=== PATIENT | female | born 1980 | race Caucasian/White ===

== ENCOUNTER → 2016-08-29 | Outpatient (CLI) | payer BC, OTHER ==
[~2016-08-29] MED LIST: HYDR-3816 PO; IBUP-1773 PO
--- NOTE | 2016-08-29 14:55 | Diagnostic Imaging Report ---
Transabdominal and transvaginal pelvic ultrasound. INDICATION: Excessive bleeding and cramping. FINDINGS: The uterus is 8 x 5 x 5.2 cm. The endometrial stripe is 1.6 cm in thickness. Trace amount of fluid is seen in the endometrial cavity. The myometrium is slightly heterogeneous with no discrete mass. The right ovary is 2.6 x 2.2 x 2.5 cm. The left ovary is 1.8 x 2.7 x 1.7 cm. The ovaries demonstrate arterial and venous waveforms. No significant free fluid or fluid collection in the pelvis is noted. IMPRESSION: No definite abnormality. Dictated by: Dictated on workstation # [id number]
== END ==
LOC: RAD 13:16
PROVIDERS: ATTEND Obstetrics & Gynecology
DX: N92.0 Excessive and frequent menstruation with regular cycle (principal)
CPT/HCPCS: 76830; 76856

== ENCOUNTER 2016-08-31 11:38 | Outpatient (CLI) | payer BC ==
[~2016-08-31] VITALS: Ht 170.2 cm; Wt 89.8 kg
== END 2016-08-31 11:51 ==
LOC: PREOP 11:38
PROVIDERS: ATTEND Obstetrics & Gynecology
DX: Z01.818 Encounter for other preprocedural examination (principal); N92.0 Excessive and frequent menstruation with regular cycle

== ENCOUNTER 2016-09-04 10:31 | Day surgery (SDC) | payer BC ==
[~2016-09-04] VITALS: Ht 170.2 cm; Wt 89.8 kg
[2016-09-04] MEDS ORDERED: cefTRIAXone 1 GM (ROCEPHIN) VIAL ONE (10:36)
[2016-09-04] MEDS ORDERED: NS (IVPB) 50 ML ONE (10:36)
[2016-09-04] MEDS ORDERED: ceFAZolin 1,000 MG (ANCEF) VIAL ONE (10:37)
[2016-09-04] MEDS ORDERED: metroNIDAZOLE 500MG/100ML IVPB 100 ML ONE (10:37)
[2016-09-04] MEDS ORDERED: metroNIDAZOLE 500 MG/100 ML IVPB (PRE-MIX) IV ONE (10:45)
[2016-09-04] MEDS ORDERED: ceFAZolin 1 GM/NS 50 ML IVPB IV ONE ×2 (10:45)
[2016-09-04] MEDS: LACTATED RINGERS 1,000 ML IV PRN ×3 (10:45→14:30)
[2016-09-04] MEDS ORDERED: CATHETER FLUSH 10 ML SYR IV PRN (10:45)
[2016-09-04] MEDS ORDERED: ONDANSETRON 4 MG/2 ML (SDV) Z0FRAN ONE (10:49)
[2016-09-04] MEDS ORDERED: MIDAZOLAM 2 MG/2 ML (VERSED) VIAL ONE (10:49)
[2016-09-04] MEDS ORDERED: DEXAMETHASONE PF 10 MG/ML (DECADRON) VIAL ONE (10:49)
[2016-09-04] MEDS ORDERED: SEVOFLURANE (ULTANE) 15 ML INHAL SOLN ONE ×8 (10:49→14:42)
[2016-09-04] MEDS ORDERED: proPOfol 200 MG/20 ML (DIPRIVAN) VIAL IV ONE (10:49)
[2016-09-04] MEDS ORDERED: fentaNYL INJECTION 250 MCG/5 ML AMP ONE (10:49)
[2016-09-04] MEDS ORDERED: ROCURONIUM 50 MG/5 ML (ZEMURON) VIAL IV ONE (10:49)
[2016-09-04] MEDS ORDERED: LACTATED RINGERS 1,000 ML IV ONE ×3 (10:49→14:41)
[2016-09-04 11:00] LABS: BILIRUBIN,URINE NEGATIVE (NEGATIVE); KETONES,URINE 3+ (NEGATIVE); LEUKOCYTE ESTERASE ,URINE NEGATIVE (NEGATIVE); NITRITE,URINE NEGATIVE (NEGATIVE); PH,URINE 5 (5-9); PROTEIN,URINE 1+ (NEGATIVE); UROBILINOGEN,URINE NORMAL (NORMAL)
[2016-09-04 11:11] VITALS: BP 118/64
[2016-09-04 11:13] LABS: MEAN PLATELET VOLUME 10.9 FL (7.4-10.4); RED BLOOD COUNT 4.48 10^6/uL (4.35-5.85); RED CELL DISTRIBUTION WIDTH 14.2 % (10.0-14.5)
[2016-09-04 11:15] LABS: WBC,URINE RARE /HPF
[2016-09-04] MEDS ORDERED: KETOROLAC 30 MG/ML VIAL IVP PRN (11:45)
[2016-09-04] MEDS ORDERED: BUP/EPI 0.25% 1:200,000 (MARCAINE) 30 ML VIAL ONE (11:46)
--- NOTE | 2016-09-04 11:54 | Progress Note-Pre Operative ---
Pre-Operative Progress Note H&P Reviewed The H&P was reviewed, patient examined and no changes noted. Date H&P Reviewed: September 04, 2016 Time H&P Reviewed: 11:50 Pre-Operative Diagnosis: MENORRHAGIA, PREVIOUS CS X 3 SAIRA BARKER DO September 04, 2016 11:54
[2016-09-04] MEDS ORDERED: fentaNYL INJECTION 100 MCG/2 ML AMP ONE (13:32)
[2016-09-04] MEDS ORDERED: KETOROLAC 30 MG/ML VIAL ONE (14:33)
[2016-09-04] MEDS ORDERED: morphine INJ 10 MG/ML 1ML (SYR OR VIAL) ONE (14:33)
[2016-09-04] MEDS ORDERED: NEOSTIGMINE (BLOXIVERZ ) 1 MG/1ML 10 ML VIAL ONE (14:42)
[2016-09-04] MEDS ORDERED: GLYCOPYRROLATE 0.2 MG/ML (ROBINUL) 2 ML VIAL ONE (14:42)
[2016-09-04] MEDS ORDERED: SIMETHICONE 80 MG (MYLICON) CHEW PO PRN (14:45)
[2016-09-04] MEDS ORDERED: DOCUSATE SODIUM 100 MG (COLACE) CAP PO PRN (14:45)
[2016-09-04] MEDS ORDERED: ONDANSETRON 4 MG/2 ML (SDV) Z0FRAN IV PRN (14:45)
[2016-09-04] MEDS ORDERED: ANTACID SUSP 30 ML UDC (MYLANTA) PO PRN (14:45)
--- NOTE | 2016-09-04 14:47 | Operative Report ---
Operative Report Date of Procedure/Surgery September 04, 2016 Surgeon (s) SAIRA BARKER DO Typists Supervisor (s): Jeaneth Vieira APRN Post-Operative Diagnosis right ovarian cyst, suspected adenomyosis, vesicouterine adhesions, omental adhesions, menorrhagia, thickened endometrium Procedure Performed Robotic assisted total hysterectomy, bilateral salpingectomy, extensive lysis of adhesions (greater than 45 minutes), right ovarian cystectomy Description of Procedure Anesthesia Type: General Estimated blood loss (mL): 150 Specimen(s) collected/removed uterus, bilateral tubes, right ovarian cyst wall, omentum Description of the Procedure After informed consent was obtained, patient was taken into the operating room where general anesthetic was found to be adequate. She was prepped and draped in the usual sterile fashion in the dorsal lithotomy position. A Godinez catheter was placed. A speculum was placed in the vagina. The cervix was visualized and the anterior lip was grasped with a sharp toothed tenaculum. A stitch was placed a the 12 o'clock position. The uterus was sounded and depth was approximately [address] I planned to place the Alexandra device. However, it was not able to be located so a V Care device was placed. A medium V Care was utilized. I inserted the V Care without difficulty, inflating the balloon and securing it around the fornix of the cervix. Attention was then turned to the patient's abdomen. A supraumbilical incision was made about 12 mm. A Veress needle was inserted and intraabdominal placement was confirmed with a drop in pressure and the saline drop test. I then insufflated the abdomen to a maximum of 15 mmHg with warmed CO2 gas. I then placed a 12 mm trocar and then the Da Tsering camera and intraperitoneal placement was confirmed. I then determined the procedure could be continued robotically. The first robotic port was placed about 12 cm lateral to the right and left of the umbilical placement and slightly inferior. These are both 8 mm trocars. These were placed under direct visualization of the laparoscope. 0.25% Marcaine was injected prior to placement of all trocars. I then placed an architectural administrative assistant trocar approximately 6 cm medial and cephalad to the supraumbilical port. This was also an 12 mm port and placed under direct visualization. When all placements were confirmed, the patient was placed in steep Trendelenburg allowing adequate visualization and the robot was brought in for docking. The docking was accomplished without difficulty. A survey of the pelvis confirmed the above mentioned findings. I then took over the command of the robot utilizing the Bipolar forceps and monopolar nick. In order to proceed with the hysterectomy, I had to take down the omental adhesions to visualize the pelvis adequately. The omental adhesions was approximately 5 cm in diameter and I originally thought it was attached to the anterior abdominal wall, but instead, was advanced through the peritoneum. I thought there was a herniation, but there was no separation in the fascia. I was able to grasp the omentum and then cauterize any bleeders and cut the omentum at abdominal wall or pull it down. This was densely adherent and took over 30 minutes. Once I was able to visualize the pelvis, and the omentum was down, I moved to the hysterectomy, but did return later to continue the dissection. There was no active bleeding. I did noted that the bladder was advanced high on the lower uterine segment and the center was very thick and densely adherent, due to previous classical/ midline uterine incision. I now was able to visualize the round ligaments bilaterally and grasped them and cauterized with bipolar cautery and then cut with my nick. At this point, I then did bilateral salpingectomy. I incised the mesosalpinx bilaterally. I then moved to the uteroovarian ligaments. I sealed the vessel and transected bilaterally using the bipolar cautery and then cut with the monopolar nick. I then moved my dissection to the posterior leaves of the broad ligament. I dissected the posterior leaves of the broad ligament off the uterine arteries skeletonizing them bilaterally. I then took a second clamp with the bipolar cautery and with the nick, transected the vessels away from the lateral aspect to the cervical stroma. I dissected the anterior peritoneum off the lower uterine segment. I backfilled the bladder to allow better visualization of the vesicouterine junction. I continually pushed the bladder back and I took excessively great care and I was eventually able to dissect the vesicouterine peritoneum off the lower uterine segment. The adhesions were very dense and the adhesiolysis took approximately 20 more minutes. I then dissected in a V fashion towards the midline between the uterosacral ligaments. This allowed me to skeletonize the uterine vessels bilaterally. I could now see the cuff of the V Care circumferentially. I then performed a colpotomy anteriorly and then amputate with cervix away from the vaginal fornix. I then continued the colpotomy circumferentially. Once this was performed, the architectural administrative assistant removed the uterus through the vagina. A sponge was left in the vagina to maintain pneumoperitoneum. I then began closure of the vaginal cuff. The uterus was left in the vagina to maintain pneumoperitoneum. I closed the apices of the vaginal cuff with 2-0 Vicryl V lock sutures with a colposuspension through the uterosacral ligaments. This suspended the apices of the vaginal cuff. I extended this to the midline from both sides and overlapped the V lock sutures in the midline. Excellent closure is noted and hemostasis is achieved. I now reinspected the area of the omental inspection. I removed any additional omental tissue that was adherent to the abdominal wall and sent this for pathology. I then used a v lock to close the peritoneal defect as the edges were bleeding slightly. I then inspected the entire area of the omental dissection and there was no active bleeding. I copiously irrigated the abdomen and the pelvis. There was good hemostasis. I now removed the right ovarian cyst by cutting with the monopolar nick. It was mildly hemorrhagic. I sent the cyst wall for pathology. The base of the cyst was cauterized and there was good hemostasis. I then used floseal along the vaginal cuff and the peritoneal reflection, and the right ovary. All the needles were removed from the patient's abdomen. Now, the robotic instruments were removed and the robot was docked back to laparoscopy. The pelvis was irrigated. At this point I repeated an exam of the pelvis laparoscopically. The pelvis was irrigated. There was no active bleeding noted. Bilateral ureters were seen the entire time during the surgery and were peristalsing. The trocars were removed under direct visualization. The laparoscopic sites were visualized and found to be hemostatic. The trocar sites were injected with 0.25% Marcaine. I closed the 12 mm fascial incisions with a figure of 8 stitch of 0 Vicryl and then the skin incisions were closed with 4-0 Monocryl in a subcuticular fashion and then with Dermabond. Op sites were placed over the incision sites. The instruments were removed from the vagina and I noted there were no abrasions. Sponge, lap, needle and instrument counts correct times two. Findings of the Procedure Uterus severely retroverted, boggy consistent with adenomyosis, peritubal and periovarian adhesions, enlarged right ovarian cyst, uterus shifted to the left , pulled due to adhesions, very thick vesicouterine adhesions, large omental adhesion to anterior abdominal wall, through the peritoneum suggesting herniation, but not through the fascia, there appeared to be reperitonealization around the omental mass through the peritoneal defect. Allergies and Home Medications Allergies Coded Allergies: No Known Drug Allergies (Unverified , 08/31/16) Home Medications Hydrocodone/Acetaminophen 1 Each Tablet, 1-2 EA PO Q6H PRN for PAIN-MODERATE TO SEVERE, #45 Prescribed by: SAIRA BARKER on 09/04/16 1623 Ibuprofen 600 Mg Tablet, 600 MG PO Q6H, #40 Prescribed by: SAIRA BARKER on 09/04/16 1623 SAIRA BARKER DO September 04, 2016 14:47
[2016-09-04] MEDS: KETOROLAC 30 MG/ML VIAL IV SCH ×2 (14:54→20:56)
[2016-09-04] MEDS: morphine INJ 10 MG/ML 1ML (SYR OR VIAL) IVP PRN ×2 (14:56→15:02)
[2016-09-04] MEDS ORDERED: ONDANSETRON 4 MG/2 ML (SDV) Z0FRAN IVP PRN (15:00)
[2016-09-04] MEDS ORDERED: HYDROmorphone (DILAUDID) 2 MG/ML VIAL IVP PRN ×2 (15:00→17:15)
[2016-09-04] MEDS ORDERED: PROMETHAZINE INJ 25 MG/ML (PHENERGAN) AMP ONE (15:08)
[2016-09-04] MEDS ORDERED: PROMETHAZINE INJ 25 MG/ML (PHENERGAN) AMP IVP PRN (15:15)
[2016-09-04 15:50] VITALS: BP 117/59
[2016-09-04] MEDS: LACTATED RINGERS 1,000 ML IV SCH ×2 (15:50→19:08)
[2016-09-04] MEDS: IBUPROFEN 600 MG (MOTRIN) TAB PO SCH ×2 (16:04→22:35)
[2016-09-04] MEDS: HYDROcodone/APAP 7.5 MG/325 MG (LORTAB, LORCET PLUS) TABLET PO PRN ×2 (16:14→22:34)
[2016-09-04] MEDS ORDERED: IBUP-1773 PO (16:23)
[2016-09-04] MEDS ORDERED: HYDR-3816 PO (16:23)
--- NOTE | 2016-09-04 16:58 | Discharge Inst-Women's Service ---
Discharge Inst-Women's Serv Depart Medication/Instructions New, Converted or Re-Newed RX: RX on Chart Final Diagnosis menorrhagia adenomyosis omental adhesions uterovaginal adhesions. right ovarian cyst s/p Robotic assisted total hysterectomy, bilateral salpingectomy, lysis of adhesions (extensive), right ovarian cystectomy Consults/Follow Up Additional Follow Up: Yes (1-2 weeks with Menendez/Jeaneth and 10-12 weeks with Menendez) Activity Activity: Activity as Tolerated (no lifting over 25 lbs) Driving Instructions: No Driving for 1 Week NO SMOKING: NO SMOKING Nothing Inside Vagina: No Douching, No Farmer, No Tampons Diet Discharge Diet: No Restrictions Symptoms to Report to : Swelling Increased, Bleeding Excessive, Fever Over 101 Degrees F, Vaginal Bleeding Increase, Cramps in Feet or Legs, Vaginal Discharge Foul For Any Problems or Questions: Contact Your Physician Skin/Wound Care Infection Signs and Symptoms: Increased Redness, Foul Odor of Wound, Increased Drainage, Skin Itchy or Has a Rash, Increased Swelling, Temperature Above 101 F Operative Area Clean and Dry: You May Remove Bandage (if soiled or wet, may remove. Otherwise leave in place until follow up.) Stitches/[place]/Dermabond: Dermabond Bathing Instructions: SAIRA Pino DO September 04, 2016 16:58
[2016-09-04 20:00] VITALS: BP 114/61
[2016-09-05] VITALS: BP 113/62
[2016-09-05 03:10] VITALS: BP 118/57
[2016-09-05] MEDS: KETOROLAC 30 MG/ML VIAL IV SCH (03:10)
[2016-09-05] MEDS: LACTATED RINGERS 1,000 ML IV SCH (03:10)
[2016-09-05] MEDS: IBUPROFEN 600 MG (MOTRIN) TAB PO SCH ×2 (03:10→08:51)
[2016-09-05] MEDS: HYDROcodone/APAP 7.5 MG/325 MG (LORTAB, LORCET PLUS) TABLET PO PRN ×2 (06:51→08:55)
--- NOTE | 2016-09-05 08:08 | Progress Note-Standard ---
Standard Progress Note Progress Notes/Assess & Plan Date Seen 09/05/16 Assess & Plan/Chief Complaint POD#1 Denies complaints R side a little sore Ambulating Voiding Tolerating oral intake no n/v VS - Last 72 Hours, by Label 09/04/16 09/04/16 09/04/16 09/05/16 11:11 15:50 20:00 00:00 Temp 98.4 97.4 98.5 99.2 Pulse 89 72 109 116 Resp 16 18 16 16 B/P (MAP) 118/64 117/59 114/61 113/62 Pulse Ox 97 97 95 97 O2 Delivery Room Air Room Air Room Air Room Air 09/05/16 03:10 Temp 97.6 Pulse 106 Resp 16 B/P (MAP) 118/57 Pulse Ox 96 O2 Delivery Room Air Intake and Output 09/05/16 00:00 Intake Total 3150 ml Output Total 190 ml Balance 2960 ml IV Total 3150 ml Output Urine Total 190 ml UOP not accurate, not documented for several hours Gen: NAD Abd: Soft, nttp, lap sites covered Laboratory Tests Test 09/04/16 10:40 09/04/16 11:02 Range/Units Urine Color YELLOW Urine Clarity SLIGHTLY CLOUDY Urine pH 5 5-9 Urine Specific [place] 1.020 1.016-1.022 Urine Protein 1+ H NEGATIVE Urine Glucose (UA) NEGATIVE NEGATIVE Urine Ketones 3+ H NEGATIVE Urine Nitrite NEGATIVE NEGATIVE Urine Bilirubin NEGATIVE NEGATIVE Urine Urobilinogen NORMAL NORMAL MG/DL Urine Leukocyte Esterase NEGATIVE NEGATIVE Urine RBC (Auto) 1+ H NEGATIVE Urine RBC 0-2 /HPF Urine WBC RARE /HPF Urine Squamous Epithelial Cells 10-25 H /HPF Urine Crystals NONE /LPF Urine Bacteria MODERATE H /HPF Urine Casts NONE /LPF Urine Mucus MODERATE H /LPF Urine Culture Indicated YES Urine Test NEGATIVE NEGATIVE White Blood Count 5.0 4.3-11.0 10^3/uL Red Blood Count 4.48 4.35-5.85 10^6/uL Hemoglobin 13.0 11.5-16.0 G/DL Hematocrit 39 35-52 % Mean Corpuscular Volume 88 80-99 FL Mean Corpuscular Hemoglobin 29 25-34 PG Mean Corpuscular Hemoglobin Concent 33 32-36 G/DL Red Cell Distribution Width 14.2 10.0-14.5 % Platelet Count 259 130-400 10^3/uL Mean Platelet Volume 10.9 H 7.4-10.4 FL A/P 36 y/o s/p, robotic assisted total hysterectomy, bilateral salpingectomy, extensive lysis of adhesions (greater than 45 minutes), right ovarian cystectomy, POD#[address] Menendez D/c home as per Dr. Menendez's discharge instructions, return precautions discussed Labs Laboratory Tests 09/04/16 11:02 SALINAS CHAVEZ MD September 05, 2016 08:08
[2016-09-05 09:00] VITALS: BP 110/57
--- NOTE | 2016-09-05 15:18 | Anesthesia-General Post-Op ---
General Patient Condition Mental Status/LOC: Same as Preop Cardiovascular: Satisfactory Nausea/Vomiting: Absent Respiratory: Satisfactory Pain: Controlled Complications: Absent Post Op Complications Complications None Follow Up Care/Instructions Patient Instructions None needed. Anesthesia/Patient Condition Patient Condition Patient is doing well, no complaints, stable vital signs, no apparent adverse anesthesia problems. No complications reported per nursing. D/C home per [facility] – [place] Criteria: No RITESH ROCHA CRNA September 05, 2016 15:18
== END 2016-09-05 12:20 | disposition home or self-care (01) ==
LOC: SDC 10:31 → WS 15:45 → SDC 09-05 12:20
PROVIDERS: ATTEND Obstetrics & Gynecology
DX: N92.0 Excessive and frequent menstruation with regular cycle (principal); N73.6 Female pelvic peritoneal adhesions (postinfective); K66.0 Peritoneal adhesions (postprocedural) (postinfection); R93.8 Abnormal findings on diagnostic imaging of other specified body structures; N83.01 Follicular cyst of right ovary; N83.8 Other noninflammatory disorders of ovary, fallopian tube and broad ligament
CPT/HCPCS: 36415; 81000; 84703; 85027; 86850; 86900; 86901; 87081; 87088; 88305; 88307; 96361; 96375; 96376